=== PATIENT | male | born 1955 | race Caucasian/White ===

== ENCOUNTER 2019-04-18 23:03 | Inpatient (IN) | payer OTHER ==
[~2019-04-18] VITALS: Ht 175.3 cm; Wt 63.7 kg
[2019-04-18 23:34] LABS: EOSINOPHILS % (AUTO) 2.6 % (0.0-8.0); HEMATOCRIT 42.5 % (42-54); LYMPHOCYTES % (AUTO) 40.2 % (21.0-51.0); MEAN CORPUSCULAR HEMOGLOBIN 33.9 pg (27.0-33.0); MEAN CORPUSCULAR HGB CONC 33.7 g/dL (32.0-36.0); MEAN CORPUSCULAR VOLUME 100.4 fL (79-99); NEUTROPHILS % (AUTO) 31.2 % (40.0-77.0); PLATELET COUNT (AUTO) 267 K/uL (130-400); RED BLOOD CELL COUNT(AUTO) 4.23 MIL/uL (4.50-6.20); RED CELL DISTRIBUTION WIDTH 13.5 % (11.0-15.5); WHITE BLOOD COUNT (AUTO) 9.2 K/uL (4.8-10.8)
[2019-04-18 23:46] LABS: POTASSIUM 4.2 mmol/L (3.5-5.1)
[2019-04-18 23:52] LABS: ALBUMIN 4.1 g/dL (3.5-5.0); BILIRUBIN,TOTAL 0.3 mg/dL (0.2-1.0); TOTAL PROTEIN, SERUM 8.5 g/dL (6.0-8.3)
[2019-04-19] VITALS (7 sets, daily range): BP systolic 87–132; BP diastolic 45–75
[2019-04-19] MEDS ORDERED: ONDANSETRON HCL 4 MG/2 ML VIAL ONE (00:07)
[2019-04-19] MEDS ORDERED: MORPHINE SULFATE 4 MG/1ML SYG ONE (00:08)
[2019-04-19] MEDS ORDERED: SODIUM CHLORIDE 0.9% 1000ML 1,000 ML IV ONE ×2 (00:09→08:25)
[2019-04-19] MEDS ORDERED: IOHEXOL-350 75 ML VIAL IV ONE (00:58)
[2019-04-19 01:43] LABS: APPEARANCE,URINE Clear (CLEAR); BILIRUBIN,URINE Negative (NEGATIVE); COLOR,URINE Yellow (YELLOW); GLUCOSE, URINE (UA) Negative (NEGATIVE); KETONES,URINE Negative (NEGATIVE); LEUKOCYTE ESTERASE ,URINE Negative (NEGATIVE); NITRATE,URINE Negative (NEGATIVE); OCCULT BLOOD,URINE Small (NEGATIVE); PH,URINE 6.5 (5.0-8.0); PROTEIN,URINE Negative (NEGATIVE); UROBILINOGEN,URINE 0.2 mg/dL (0.2-1.0)
[2019-04-19 01:56] LABS: BACTERIA,URINE None Seen /HPF (None Seen); SQUAMOUS EPITHELIAL CELL,UR Moderate /HPF (0-2); WBC,URINE 0-1 /HPF (0-1)
[2019-04-19] MEDS ORDERED: ACETAMINOPHEN 325 MG TAB PO PRN (02:45)
[2019-04-19] MEDS ORDERED: MORPHINE SULFATE 2 MG/ML 1ML SYG IV PRN (02:45)
[2019-04-19] MEDS ORDERED: ONDANSETRON HCL 4 MG/2 ML VIAL IV PRN (02:45)
[2019-04-19 03:15] LABS: CHOLESTEROL 167 mg/dL (<200); HDL CHOLESTEROL 127 mg/dL (29-71); LDL DIRECT 102 mg/dL (0-99); TRIGLYCERIDES 62 mg/dL (30-200)
--- NOTE | 2019-04-19 03:55 | NUR ---
ADMISSION. PT ADMITTED INTO ROOM 410 FROM ER, PT AWAKE, ALERT AND RESPONSIVE NO C/O PAIN AT THIS TIME. PT AND BROTHER AT BEDSIDE ORIENTED TO ROOM, CALL GOOD WITHIN REACH, BED IN LOWEST POSITION. Addendum: 04/19/19 at 0359 by ASHLEY GUERRA RN Amended: Links added.
[2019-04-19] MEDS: SODIUM CHLORIDE 0.9% 1000ML 1,000 ML IV SCH ×3 (05:34→18:38)
--- NOTE | 2019-04-19 07:30 | NUR ---
LOW BLOOD PRESSURE OBTAINED AUTOMATIC BLOOD PRESSURE READING 88/58. PATIENT IS LAYING IN BED, RELAXED. PATIENT REPORTS NO DISCOMFORTS AND STATES "FEELING FINE." PERFORMED MANUAL BLOOD PRESSURE RECHECK, OBTAINED READING 92/60. PAGED FINISHER FINE DIAMOND DIES HOSPITALIST TO REPORT BLOOD PRESSURE FINDINGS. AWAITING CALLBACK.
[2019-04-19] MEDS ORDERED: SODIUM CHLORIDE 0.9% 1000ML 1,000 ML IV SCH (08:25)
[2019-04-19 09:30] LABS: AMPHET/METH SCREEN,URINE NEGATIVE (NEGATIVE); BARBITURATE SCREEN, URINE NEGATIVE (NEGATIVE); BENZODIAZEPINES SCREEN,URINE NEGATIVE (NEGATIVE); CANNABINOID SCREEN,URINE NEGATIVE (NEGATIVE); COCAINE SCREEN,URINE NEGATIVE (NEGATIVE); OPIATE SCREEN,URINE NEGATIVE (NEGATIVE); PHENCYCLIDINE SCREEN,URINE NEGATIVE (NEGATIVE)
--- NOTE | 2019-04-19 10:37 | NUR ---
DR. Zenia SYED RECEIVED CALLBACK FROM TIGRE SEAY, CLINICAL COORDINATOR OF DR. FARZANA SYED'S OFFICE. OBTAINED PATIENT INFORMATION REGARDING CONSULT AND STATED SHE WOULD INFORM DR. FARZANA SYED OF PATIENT INFORMATION PROVIDED.
[2019-04-19] MEDS: FAMOTIDINE/PF 20 MG/2 ML VIAL IV SCH ×2 (11:08→20:30)
[2019-04-19] MEDS: ENOXAPARIN SODIUM 40 MG/0.4 ML SYRINGE SQ SCH (11:09)
--- NOTE | 2019-04-19 14:54 | NUR ---
DCP CM met with pt discussed dc plans. Pt is independent prior to admission, lives at home alone, brother lives close by. Denies any equipments/services. Pt feels safe to go back home, still works and drives, pt arranges own needs, brother able to assist with transporations as necessary. DC plan to home once stable. CM to cont to follow up. Addendum: 04/19/19 at 1455 by OPAL SMITH LVN CM Amended: Links added.
--- NOTE | 2019-04-19 15:48 | NUR ---
RD Notification Pt admitted for pancreatitis. Pt NPO at this time. When medically feasible, rec to adv diet as tolerated to Soft, Low fat diet. Pt LBM 04/18/19. Pt monitored labs: Na 135, Cl 99, BUN 19, Glu 123, Alb 4.1, LDL 102, HDL 127, Amylase 149, Lipase 668. RD to follow up. Please notify RD as nutritional concerns arise. Thank you. Addendum: 04/19/19 at [address] RD Amended: Links added.
[2019-04-20] VITALS (23 sets, daily range): BP systolic 86–153; BP diastolic 37–87
[2019-04-20] MEDS: SODIUM CHLORIDE 0.9% 1000ML 1,000 ML IV SCH ×3 (02:36→18:31)
[2019-04-20 03:51] LABS: BASOPHILS % (AUTO) 0.6 % (0.0-5.0); EOSINOPHILS % (AUTO) 3.5 % (0.0-8.0); HEMATOCRIT 33.8 % (42-54); LYMPHOCYTES % (AUTO) 36.8 % (21.0-51.0); MEAN CORPUSCULAR HEMOGLOBIN 34.7 pg (27.0-33.0); MEAN CORPUSCULAR VOLUME 102.1 fL (79-99); MONOCYTES % (AUTO) 5.8 % (3.0-13.0); NEUTROPHILS % (AUTO) 53.3 % (40.0-77.0); NUCLEATED RED BLOOD CELLS 0.1 % (0.0-0.19); PLATELET COUNT (AUTO) 203 K/uL (130-400); RED BLOOD CELL COUNT(AUTO) 3.31 MIL/uL (4.50-6.20); RED CELL DISTRIBUTION WIDTH 13.7 % (11.0-15.5); WHITE BLOOD COUNT (AUTO) 6.7 K/uL (4.8-10.8)
[2019-04-20 04:03] LABS: CREATININE 1.1 mg/dL (0.5-1.5); POTASSIUM 3.9 mmol/L (3.5-5.1)
[2019-04-20] MEDS: ENOXAPARIN SODIUM 40 MG/0.4 ML SYRINGE SQ SCH (09:00)
[2019-04-20] MEDS: FAMOTIDINE/PF 20 MG/2 ML VIAL IV SCH ×2 (09:45→20:42)
[2019-04-21] VITALS: BP 96/44
[2019-04-21] MEDS: SODIUM CHLORIDE 0.9% 1000ML 1,000 ML IV SCH ×2 (02:31→09:58)
[2019-04-21 04:00] VITALS: BP 96/65
[2019-04-21 07:37] VITALS: BP 125/68
[2019-04-21 09:14] LABS: HEMATOCRIT 37.6 % (42-54); MEAN CORPUSCULAR HEMOGLOBIN 34.4 pg (27.0-33.0); MEAN CORPUSCULAR HGB CONC 33.9 g/dL (32.0-36.0); MEAN CORPUSCULAR VOLUME 101.5 fL (79-99); PLATELET COUNT (AUTO) 248 K/uL (130-400); RED CELL DISTRIBUTION WIDTH 13.8 % (11.0-15.5); WHITE BLOOD COUNT (AUTO) 6.7 K/uL (4.8-10.8)
[2019-04-21 09:37] LABS: EOSINOPHILS % (MANUAL) 4 % (1-6); LYMPHOCYTES % (MANUAL) 17 % (22-44); MAN.DIFF COMMENT-IMPRESSION MANUAL DIFFERENTIAL; MONOCYTES % (MANUAL) 2 % (2-9); SEGMENTED NEUTROPHILS % 77 % (40-70)
[2019-04-21 09:38] LABS: PLATELET MORPHOLOGY COMMENT ADEQUATE
[2019-04-21] MEDS: FAMOTIDINE/PF 20 MG/2 ML VIAL IV SCH (09:54)
[2019-04-21] MEDS: ENOXAPARIN SODIUM 40 MG/0.4 ML SYRINGE SQ SCH (09:56)
[2019-04-21] MEDS ORDERED: ESOM20CA39 PO (10:23)
--- NOTE | 2019-04-21 11:00 | NUR ---
DR MERCER ROUNDED ON PATIENT , RECIEVED ORDERS TO REMOVE IV IV REMOVED WITH CATHETER INTACT AND SITE DRESSED. PATIENT MAY BE DISCHARGE AFTR LUNCH AND TO GIVE HIM EDUCATION ON HIGH FIBER ACID REFLEX DIET.
--- NOTE | 2019-04-21 12:15 | NUR ---
PATIENT GIVEN DISCHARGE INSTRUCTIONS AND VERBALIZED UNDERSTANDING, EDUCATION GIVEN ON HIGH FIBER AND ACID REFLEX DIET AND PRINTED GUILDS GIVEN. PATIENT TO FOLLOW-UP WITH DR SYED IN 1-2 WEEK PHONE NUMBER TO CLINIC GIVEN PATIENT STATES HE WILL FOLLOW-UP.DR MERCER GIVE PATIENT HIS CARD [facility] AND TO COME BY AND SET HIMSELF [facility]. NO QUESTION OR CONCERNS AT THIS TIME , PATIENT TAKING BY WHEELCHAIR TO [facility] AND LEFT WITH FRIEND FOR HOME.
== END 2019-04-21 12:28 | disposition home or self-care (01) | DRG 383 ==
LOC: EDH 23:03 → EDHIP 23:04 → 4BH 04-19 02:54
PROVIDERS: ADMIT Internal Medicine; ATTEND Internal Medicine
PROC: 0DB68ZX Excision of Stomach, Via Natural or Artificial Opening Endoscopic, Diagnostic (ICD-10-PCS; principal; 2019-04-20)
PROC: 0DB78ZX Excision of Stomach, Pylorus, Via Natural or Artificial Opening Endoscopic, Diagnostic (ICD-10-PCS; 2019-04-20)
DX: K27.9 Peptic ulcer, site unspecified, unspecified as acute or chronic, without hemorrhage or perforation (principal); K85.90 Acute pancreatitis without necrosis or infection, unspecified; E87.1 Hypo-osmolality and hyponatremia; K44.9 Diaphragmatic hernia without obstruction or gangrene; K82.8 Other specified diseases of gallbladder; R93.3 Abnormal findings on diagnostic imaging of other parts of digestive tract; B96.81 Helicobacter pylori [H. pylori] as the cause of diseases classified elsewhere; N28.9 Disorder of kidney and ureter, unspecified; F17.210 Nicotine dependence, cigarettes, uncomplicated; R68.81 Early satiety; R63.4 Abnormal weight loss; Z68.20 Body mass index [BMI] 20.0-20.9, adult
CPT/HCPCS: 36415; 43239; 74177; 76705; 80048; 80053; 80061; 80305; 81001; 82150; 83036; 83690; 85025; 88305; 93005; G0378; J1650; J2270; J2405; J3490; J7030; Q9967

== ENCOUNTER 2019-04-22 12:33 | Emergency (ER) | payer SELFPAY ==
[~2019-04-22 12:33] MED LIST: ESOM20CA39 PO
[2019-04-22] MEDS ORDERED: ONDANSETRON HCL 4 MG/2 ML VIAL ONE (13:08)
[2019-04-22] MEDS ORDERED: MORPHINE SULFATE 4 MG/1ML SYG ONE (13:09)
[2019-04-22] MEDS ORDERED: SODIUM CHLORIDE 0.9% 1000ML 1,000 ML IV ONE (13:09)
[2019-04-22 13:15] LABS: BASOPHILS % (AUTO) 0.2 % (0.0-5.0); EOSINOPHILS % (AUTO) 1.8 % (0.0-8.0); HEMATOCRIT 38.4 % (42-54); LYMPHOCYTES % (AUTO) 26.3 % (21.0-51.0); MEAN CORPUSCULAR HEMOGLOBIN 34.3 pg (27.0-33.0); MEAN CORPUSCULAR HGB CONC 33.8 g/dL (32.0-36.0); MEAN CORPUSCULAR VOLUME 101.5 fL (79-99); MONOCYTES % (AUTO) 7.1 % (3.0-13.0); NEUTROPHILS % (AUTO) 64.6 % (40.0-77.0); PLATELET COUNT (AUTO) 224 K/uL (130-400); RED BLOOD CELL COUNT(AUTO) 3.78 MIL/uL (4.50-6.20); RED CELL DISTRIBUTION WIDTH 13.5 % (11.0-15.5); WHITE BLOOD COUNT (AUTO) 6.8 K/uL (4.8-10.8)
[2019-04-22 13:36] LABS: CREATININE 0.9 mg/dL (0.5-1.5); POTASSIUM 3.8 mmol/L (3.5-5.1)
[2019-04-22 13:41] LABS: ALBUMIN 3.9 g/dL (3.5-5.0); BILIRUBIN,DIRECT 0.1 mg/dL (0.0-0.3); BILIRUBIN,TOTAL 0.3 mg/dL (0.2-1.0); TOTAL PROTEIN, SERUM 7.9 g/dL (6.0-8.3)
[2019-04-22 14:21] LABS: APPEARANCE,URINE Clear (CLEAR); BILIRUBIN,URINE Negative (NEGATIVE); COLOR,URINE Yellow (YELLOW); GLUCOSE, URINE (UA) Negative (NEGATIVE); KETONES,URINE Negative (NEGATIVE); LEUKOCYTE ESTERASE ,URINE Negative (NEGATIVE); NITRATE,URINE Negative (NEGATIVE); OCCULT BLOOD,URINE Small (NEGATIVE); PROTEIN,URINE Negative (NEGATIVE); UROBILINOGEN,URINE 0.2 mg/dL (0.2-1.0)
[2019-04-22 14:35] LABS: BACTERIA,URINE Rare /HPF (None Seen); WBC,URINE 0-1 /HPF (0-1)
[2019-04-22 14:36] LABS: SQUAMOUS EPITHELIAL CELL,UR Rare /HPF (0-2)
== END 2019-04-22 15:02 | disposition home or self-care (01) ==
LOC: EDH 12:33
DX: K29.00 Acute gastritis without bleeding (principal)
CPT/HCPCS: 36415; 80048; 80076; 81001; 83690; 85025; 96361; 96374; 96375; 99285; J2270; J2405; J7030